=== PATIENT | male | born 1980 | race Caucasian/White ===

== ENCOUNTER 2017-10-23 11:17 | Emergency (ER) | payer SELFPAY ==
[~2017-10-23] VITALS: Ht 180.3 cm; Wt 72.7 kg
[~2017-10-23 11:17] MED LIST: NO HOME MEDS
[2017-10-23 12:01] LABS: EOSINOPHIL (%) 1.9 % (0-5); EOSINOPHIL COUNT 0.1 K/uL (0-0.3); HEMATOCRIT 45.1 % (38.0-50.0); IMMATURE GRANULOCYTE (%) 0.2 % (0.0-0.7); LYMPHOCYTE COUNT 0.8 K/uL (1.0-2.8); MCH 32.1 PG (29.0-34.0); MCHC 34.6 G/DL (30.0-36.0); MCV 92.8 FL (86-99); MEAN PLAT.VOLUME 9.3 uM^3 (9.0-12.4); MONOCYTE (%) 6.9 % (3-12); MONOCYTE COUNT 0.4 K/uL (0-0.8); NEUTROPHIL (%) 74.8 % (45-76); PLATELET COUNT 230 K/uL (156-360); RBC DIS.WIDTH-CV 11.9 % (11.8-14.6); RBC DIS.WIDTH-SD 40.7 % (39-53); RED BLOOD COUNT 4.86 M/uL (4.00-5.50); WHITE BLOOD COUNT 5.3 K/uL (4.1-10.2)
[2017-10-23 12:11] LABS: CHLORIDE 100 mEq/L (99-109); POTASSIUM 4.3 mEq/L (3.7-5.4); SODIUM 139 mEq/L (136-147)
[2017-10-23 12:12] LABS: GLUCOSE 122 mg/dL (70-99)
[2017-10-23 12:14] LABS: ANION GAP 15 MEQ/L (2-14)
[2017-10-23 12:15] LABS: SERUM ETHYL ALCOHOL < 10 mg/dL
[2017-10-23 12:16] LABS: GFR ESTIMATE (CALCULATED) > 59 mL/min/
[2017-10-23 12:17] LABS: UREA NITROGEN (BUN) 11 mg/dL (9-23)
[2017-10-23 12:22] LABS: TROP-I INTERPRETATION NEGATIVE; TROPONIN-I < 0.01 ng/mL (0.0-0.30)
[2017-10-23 12:32] LABS: ADD MIUA? NO; BILIRUBIN NEGATIVE; BLOOD NEGATIVE; COLOR STRAW ((YELLOW)); GLUCOSE (STRIP) NEGATIVE; KETONES 5; LEUKOCYTES NEGATIVE; NITRITE NEGATIVE; PROTEIN (STRIP) NEGATIVE; SPECIFIC GRAVITY 1.008 (1.000-1.030); UROBILINOGEN 0.2 MG/DL (0.2-1.0)
[2017-10-23 12:49] LABS: AMPHETAMINE NEGATIVE (500 ng/mL); BARBITURATES NEGATIVE (200 ng/mL); BENZODIAZEPINES NEGATIVE (150 ng/mL); COCAINE NEGATIVE (150 ng/mL); INTERNAL CONTROLS VALID? YES; METHADONE NEGATIVE (200 ng/mL); METHAMPHETAMINE NEGATIVE (500 ng/mL); OPIATES (MORPHINE) NEGATIVE (100 ng/mL); OXYCODONE NEGATIVE (100 ng/mL); PHENCYCLIDINE NEGATIVE (25 ng/mL); PROPOXYPHENE NEGATIVE (300 ng/mL); THC CANNABINOIDS NEGATIVE (50 ng/mL); TRICYCLIC ANTIDEPRESSANTS NEGATIVE (300 ng/mL)
[2017-10-23] MEDS ORDERED: LIBRIUM25 MG PO (13:41)
[2017-10-23] MEDS ORDERED: THIAMINE HCL100 MG PO (13:41)
[2017-10-23 13:58] VITALS: BP 131/99
== END 2017-10-23 13:58 | disposition home or self-care (01) ==
LOC: EME 11:17
PROVIDERS: Emergency Medicine
DX: F10.239 Alcohol dependence with withdrawal, unspecified (principal); F41.9 Anxiety disorder, unspecified; Y90.0 Blood alcohol level of less than 20 mg/100 ml; Z88.0 Allergy status to penicillin
CPT/HCPCS: 71010; 80048; 81003; 84484; 85025; 93005; 99281; 99285; G0480